=== PATIENT | male | born 1955 | race Caucasian/White ===

== ENCOUNTER → 2017-04-07 | Outpatient (CLI) | payer OTHER ==
[~2017-04-07] VITALS: Ht 180.3 cm; Wt 108.9 kg
[~2017-04-07] MED LIST: ACCUPRIL; ACCUPRIL40 MG PO; ADULT LOW DOSE81 MG PO; AMBIEN 5 MG TABL5 M1 PO; ATORVASTATIN CA40 MG PO; BACTRIM DS TAB1 EACH PO; BUPROPION XL150 MG PO; HYDROCHLOROTH12.5 M1 PO; HYDROCODON-ACE1 EAC8 PO; IBUPROFEN 800800 M1 PO; JANUMET 50-1,01 EACH PO; LEVAQUIN 500 M500 MG PO; LOPRESSOR50 PO; NABUMETONE 750750 M1 PO; NEURONTIN 300300 M1 PO; NIASPAN; NIASPAN 500 MG500 M1 PO; NORCO 5-325 TA1 EACH PO; RELAFEN750 MG PO; SPIRIVA; TOPROL XL25 MG PO; TRAMADOL 50 MG50 MG PO; VITAMIN D250000 UNIT PO; ZALEPLON 10 MG10 M1 PO; ZOCOR
--- NOTE | ~2017-04-07 | HPC ---
[facility] [place] [address] PAIN MANAGEMENT CONSULTATION Name: RONAN ORELLANA Room #: REG [facility] MFarhat.#: [id number] Admission: 04/07/17 Attend Phys: Nilton Malcolm, DO Discharge: Date of : 53 Report #: [id number] THIS REPORT FOR: //name// CC: Ortega Malcolm The patient is a pleasant 62-year-old gentleman seen in consultation at the request of Dr. Moreno for evaluation of pain, low back, right buttock and leg. The patient had prior been treated for lumbar radiculopathy, sciatic type symptoms in 2006, 2009, (one epidural injection each time) and 2 epidural injections in 2010. He was subsequently lost to follow up. He presents to the pain clinic today as a somewhat new patient. He notes pain has been present for the past 4 years; however, the past several months without antecedent trauma, it has been getting worse. He has actually been using a cane for the past 1-1/2-2 weeks. Rates pain anywhere from a 6-10 on VAS. Describes steady, periodic, intermittent, brief, momentary, transient, burning, shooting, cramping, aching, gnawing, sharp, tender pain, primarily right low back, buttocks, posterior thigh and down to the foot. He has subjective weakness in the right leg with sensation at the knees going to "give out." He does have numbness in both legs. Denies saddle anesthesia. Denies bowel or bladder continence changes. REVIEW OF SYSTEMS: A complete review of systems was attached to chart and was gone over with the patient. He is . He has a significant smoking history, 2-1/2 packs a day currently and he smoked for over 55 years. Drinks alcohol socially. History of some recent diagnosed non-insulin dependent diabetes, currently taking Janumet, history of coronary artery disease status post myocardial infarction 25 years ago. Also, he has some concurrent hypertension. He takes hydrochlorothiazide, quinapril and metoprolol. Dyslipidemia for which he takes atorvastatin and niacin. Uses Zolpidem at bedtime, though he notes this is losing some efficacy. He has been disabled for 10 years due to COPD and what the patient reports as "chronic fatigue syndrome." Pain impact score is 58/70. PHYSICAL EXAMINATION: Reveals a 5 feet 11 inches, 240 pounds gentleman, BMI 33.5 kg/m2, blood pressure is 129/84, pulse 72, and respirations are 16. Cranial nerves 2-12 are grossly intact. Pupils are equal, reactive to light and accommodation. Extraocular muscles are intact. He does have a little lateral gaze nystagmus. Thyroid is modestly enlarged, no nodules are noted. Cervical range of motion is full. Flexion exacerbates some back pain. Upper extremity strength is generally symmetric; however, with resistance testing to triceps strength, he has exacerbation of his right low back pain. Heart is regular rhythmical without murmur. Lungs show some chronic rhonchi and distant breath [facility] [address] [place] [address] PAIN MANAGEMENT CONSULTATION Name: RONAN ORELLANA Room #: REG [facility] Cody#: [id number] Admission: 04/07/17 Attend Phys: Nilton Malcolm DO Discharge: Date of : 53 Report #: [id number] sounds. He has a moderately endomorphic build. Rises from chair using armrests. Antalgic gait, actually a little bit ataxic, uses a cane for balance. Lumbar flexion is limited to 80 degrees. Right leg has decreased strength to hip flexion, lower extremity extension and flexion about 3/5, 4/5 on the left side. Patellar reflexes are diminished on the right 0-1/4 with symmetric contraction, 2/4 on the left. Achilles reflexes are symmetric. Passive rotation of the hips is unremarkable. Nominally positive right straight leg raise at 30 degrees. Skin integument is intact. DIAGNOSTIC STUDIES: Quite dated MRI from 2006, does note a right-sided HNP at L5-S1 and some moderate stenosis at L4-L5. ASSESSMENT: Symptomatic lumbar radiculopathy with a right L5 radicular pattern by clinical exam and history. RECOMMENDATIONS: 1. We will seek authorization for epidural injection under fluoroscopy at next visit. 2. We will start the patient on nabumetone 750 b.i.d., we will give the patient 30 mg IM Toradol injection today for acute pain. He has a wedding that he wants to attend this afternoon, states pain is significantly interfering with function. We will also provide the patient a prescription for tramadol 50 mg 1 tablet q.4 hours as needed for pain, dispense 75 tablets, no refill. Again, we will seek authorization for epidural injection under fluoroscopy at L5-S1 due to right L5 radicular pain pattern in a patient with positive neural tensioning symptoms and diagnostic study noting herniated disk at the L5-S1 level albeit from 2006, this appears to be an exacerbation of prior symptoms. Again, he has had excellent relief with prior injections in 2006, 2009, and 2010. <ELECTRONICALLY SIGNED> By: Nilton Malcolm DO 04/10/17 [id number] Nilton Malcolm DO /triny
[2017-04-07 09:27] VITALS: BP 129/84
== END | disposition home or self-care (01) ==
LOC: PAIN 07:07
DX: M54.16 Radiculopathy, lumbar region (principal); Z68.33 Body mass index [BMI] 33.0-33.9, adult; J44.9 Chronic obstructive pulmonary disease, unspecified; F17.210 Nicotine dependence, cigarettes, uncomplicated; E11.9 Type 2 diabetes mellitus without complications; G47.00 Insomnia, unspecified